=== PATIENT | female | born 1990 | race African-American/Black ===

== ENCOUNTER 2020-07-06 00:23 | Emergency (ER) | payer OTHER, SELFPAY ==
[2020-07-06] VITALS (7 sets, daily range): BP systolic 105–158; BP diastolic 70–89; PULSE 64–92; RESP 16–98; TEMP 37.3; O2SAT 99–100
--- NOTE | ~2020-07-06 | CT_ITS ---
EXAMINATION: CT soft tissue neck w con DATE: 07/06/2020 08:21 INDICATION: Severe throat pain TECHNIQUE: Computed tomography (CT) of the neck was performed with 75 cc of Omnipaque 350 intravenous contrast. The dose-length product (DLP) was 414.19 mGy-cm. Automated exposure control and iterative reconstruction technique were employed. COMPARISON: None FINDINGS: The neck soft tissues are unremarkable. No abnormal fluid collection is identified. There i s no cervical lymphadenopathy. The cervical spine is unremarkable. Multiple dental caries are noted. IMPRESSION: 1. No CT correlate for the patient's symptoms. 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
--- NOTE | ~2020-07-06 | CT_ITS ---
EXAMINATION: CT brain wo con INDICATION: Headache COMPARISON: None TECHNIQUE: Standard unenhanced head CT. The dose-length product (DLP) was 529.67 mGy-cm. The mA was a djusted according to patient size. Iterative reconstruction technique was employed. FINDINGS: There is no intracranial hemorrhage, acute infarction, or abnormal mass lesion. 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 There is no abnormal mass effect or midline shift. The basal cisterns are patent. The orbits a re normal. The paranasal sinuses, mastoids and calvarium are normal. IMPRESSION: 1. No acute intracranial abnormality. 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
[2020-07-06] MEDS: KETOROLAC (*BKC) 60 MG/2 ML VIAL IM (06:00)
[2020-07-06 06:25] LABS: Basophils Percent Auto 0.5 % (0.2-1.2); Eosinophils Absolute Auto 0.1 K/mm3 (0-0.3); Eosinophils Percent Auto 1.4 % (0-4.4); Hemoglobin 10.2 g/dL (12.0-15.0); Lymphocytes Absolute Auto 1.56 K/mm3 (0.9-3.2); Mean Corpuscular HGB Conc 31.9 g/dl (32-36); Mean Corpuscular Hemoglobin 29.2 pg (26-34); Mean Corpuscular Volume 91.7 fl (80-100); Monocytes Absolute Auto 0.4 K/mm3 (0.1-0.6); Monocytes Percent Auto 10.2 % (2.6-8.5); Neutrophils Absolute Auto 2.2 K/mm3 (1.3-6.7); Neutrophils Percent Auto 50.9 % (45.5-73.1); Platelet Count Result 212 k/mm3 (150-375); Red Blood Count 3.49 M/mm3 (4.2-5.4); Red Cell Distribution Width 13.5 % (11.5-14.5); White Blood Count 4.2 K/mm3 (4.5-10.0)
[2020-07-06 06:38] LABS: Alanine Aminotransferase 8 U/L (4-35); Albumin Level 4.3 g/dL (3.5-5.1); Alkaline Phosphatase 64 U/L (38-126); Anion Gap 11 mmol/L (8-16); Aspartate Amino Transferase 18 U/L (14-36); Bilirubin,Total 0.6 mg/dL (0.2-1.3); Blood Urea Nitrogen 7 mg/dL (7-17); Calcium 9.2 mg/dL (8.4-10.2); Carbon Dioxide 24 mmol/L (22-30); Chloride 107 mmol/L (98-107); Estimated Glomerular Filt Rate > 60; Glucose 106 mg/dL (65-105); Potassium 3.5 mmol/L (3.4-5.0); Sodium 142 mmol/L (137-145)
--- NOTE | 2020-07-06 07:15 | PC.NURSE ---
Report received from NIKIA Medina, to continue care.
[2020-07-06] MEDS: Please add drug allergy info to patient profile. 1 EACH XX (07:27)
[2020-07-06] MEDS: methylPREDNISolone SOD SUCC 125 MG VIAL IV PUSH (07:27)
--- NOTE | 2020-07-06 08:32 | ED.NECK ---
HPI - Neck Pain/Injury General Chief Complaint: Neck Pain/Injury Stated Complaint: head and neck pain, no injury Source: patient Mode of arrival: ambulatory Limitations: no limitations History of Present Illness HPI Narrative: This patient is a 30 year old female who presents from home with complaint of throat pain and facial pain. She reports constant right facial pain and throat pain since yesterday. She describes her pain as sharp. She denies any injury. She denies nausea, vomiting, fever, chills, blurred vision, focal weakness, numbness or tingling. She has taken ibuprofen without relief. Related Data Allergies Allergy/AdvReac Type Severity Reaction Status Date / Time No Known Allergies Allergy Verified 07/06/20 07:19 Review of Systems Review of Systems: All systems reviewed & are unremarkable except as noted in HPI and below Constitutional: Constitutional: Denies chills and Denies fever(s) Eyes: Eyes: Denies change in vision and Denies photophobia Cardiovascular: Cardiovascular: Denies chest pain Respiratory: Respiratory: Denies cough and Denies dyspnea Gastrointestinal: Gastrointestinal: Denies abdominal pain, Denies diarrhea and Denies vomiting Neurologic: Denies dizziness, Denies focal weakness, Denies numbness and Denies weakness PMFSH Past Medical History Medical History (Updated 07/07/20 @ 00:00 by Angel Huynh) Patient denies medical problems Surgical History Surgical History (Updated 07/06/20 @ 08:40 by Judith Gutierrez MD) No significant past surgical history Social History Social History (Updated 07/06/20 @ 08:40 by Judith Gutierrez MD) Smoking status: Never smoker Exam Const: General: no acute distress and alert Orientation/consciousness: patient oriented x3 HENMT: Head: normocephalic, atraumatic and other (sensitivity to touch to right cheek and right preauricular) Ears: external ears normal, TM's normal bilaterally and normal mastoids bilaterally General nose exam: Normal external nose present and Normal nares present Face and sinus: face symmetric and other (hypersensitivity to touch right cheek) Mouth: Yes Normal oral and palatal mucosa present, Yes lip normal, Yes tongue normal, Yes oropharynx normal and Yes moist mucous membranes Teeth and gingiva: gingiva normal and fair dentition Throat: posterior oropharynx normal, tonsils normal and uvula midline Eyes: Pupils: Equal, round and reactive pupils present EOM: EOMs intact bilaterally Resp: Effort & Inspection: normal respiratory effort, no retractions and no use of accessory muscles Auscultation: clear to auscultation bilaterally Cardio: Rate: regular rate Rhythm: regular rhythm Heart sounds: no murmurs GI: GI Palp: Yes Soft to palpation, No Tenderness to palpation present (GI), No Guarding due to palpation present (GI) and No Rigid due to palpation Auscultation: normal bowel sounds Skin: General skin exam: normal color Rashes: no rashes Neuro: General: patient oriented x3, moves all extremities and no meningeal signs Cranial nerves: Yes Nystagmus not present Speech: normal speech Extrem: General: normal to inspection Psych: Mental Status: mental status grossly normal Affect: normal affect Course Reevaluation(s) Reevaluation #1: I Discussed with patient that no acute findings found. I do not see any visual abnormality to her face. Maybe this is neuropathic pain or early onset of shingles. Date: 07/06/20 Time: 08:43 Vital Signs Vital signs: Vital Signs Temperature 99.2 F 07/06/20 00:45 Pulse Rate 92 07/06/20 00:45 Respiratory Rate 18 07/06/20 00:45 Blood Pressure 133/73 07/06/20 00:45 Pulse Oximetry 100 07/06/20 00:45 Temperature 99.2 F 07/06/20 00:45 Pulse Rate 72 07/06/20 09:30 Respiratory Rate 18 07/06/20 09:30 Blood Pressure 111/70 07/06/20 09:30 Pulse Oximetry 99 07/06/20 09:30 MDM - Neck Pain/Injury Lab Data Attestation: I revi
== END 2020-07-06 09:37 | disposition home or self-care (01) ==
PROVIDERS: Emergency Provider General Practice
DX: R51.9 Headache, unspecified (principal); Q04.6 Congenital cerebral cysts
CPT/HCPCS: 36415; 70450; 70491; 80053; 81025; 85025; 87081; 87880; 96372; 96374; 99284; J1885; J2930; Q9967

== ENCOUNTER 2020-07-09 12:17 | Emergency (ER) | payer OTHER, SELFPAY ==
[2020-07-09 12:33] VITALS: BP 105/60; PULSE 82; RESP 20; TEMP 36.9; O2SAT 100
--- NOTE | 2020-07-09 12:42 | ED.FEMALEGU ---
HPI - Female Genitourinary General Chief complaint: Urogenital-Female Stated complaint: uti Time Seen by Provider: 07/09/20 12:21 Source: patient Mode of arrival: ambulatory Limitations: no limitations History of Present Illness HPI Narrative: 30-year-old female presents to [facility] with complaints of vaginal irritation and burning with urination since this morning. Patient reports that she was placed on 10 days of amoxicillin 2 days ago after having a dental procedure completed. Patient denies vaginal discharge, concern for STDs, abdominal pains, flank pain, fever, bites, chills, nausea, vomiting or diarrhea MD elicited complaint: other (Vaginal irritation, burning with urination) Onset (ago): day(s) (1) Vaginal discharge: none Vaginal bleeding: none Exacerbating factors: none Relieving factors: none Associated symptoms: denies other symptoms Treatment prior to arrival: none Patient : No Related Data Home Medications Medication Instructions Recorded Confirmed amoxicillin 875 mg TID 07/09/20 07/09/20 Allergies Allergy/AdvReac Type Severity Reaction Status Date / Time No Known Allergies Allergy Verified 07/06/20 07:19 Review of Systems Constitutional: Constitutional: Denies chills and Denies fatigue Cardiovascular: Cardiovascular: Denies chest pain, Denies rapid heart rate, Denies radiating jaw, neck or arm pain and Denies slow heart rate Gastrointestinal: Gastrointestinal: Denies abdominal pain, Denies nausea and Denies vomiting Genitourinary: Comments: Vaginal irritation and burning with urination Musculoskeletal: Musculoskeletal: Denies back pain, Denies joint swelling and Denies muscle cramps Integumentary/Breasts: Skin/Breast: Denies rash PMFSH Past Medical History Medical History (Updated 07/09/20 @ 12:47 by Tamera Harp APRN) delivery delivered Patient denies medical problems Surgical History Surgical History No significant past surgical history Social History Social History Smoking status: Never smoker Comments At time of signature, I agree with nursing past medical, surgical, social and family history. There is no relevant family history pertinent to the presenting complaint. Exam Const: General: healthy appearing, no acute distress and alert Orientation/consciousness: patient oriented x3 Neck: Neck: normal visual inspection and no lymphadenopathy Resp: Effort & Inspection: normal respiratory effort Auscultation: clear to auscultation bilaterally Cardio: Rate: regular rate Rhythm: regular rhythm GI: GI Palp: Yes Soft to palpation, No Tenderness to palpation present (GI), No Guarding due to palpation present (GI), No Rigid due to palpation and No Palpable mass present Auscultation: normal bowel sounds : General: Yes bladder normal to palpation and Yes no CVA tenderness Back/Spine/Pelvis: Back: no CVA tenderness Skin: General skin exam: normal color Rashes: no rashes Neuro: General: patient oriented x3, moves all extremities and no meningeal signs Extrem: General: normal to inspection Psych: Appearance: grossly normal Mental Status: mental status grossly normal Affect: normal affect Attitude: cooperative Thought content: Yes Normal thought content present Course Vital Signs Vital signs: Vital Signs Temperature 36.9 C 07/09/20 12:33 Pulse Rate 82 07/09/20 12:33 Respiratory Rate 20 07/09/20 12:33 Blood Pressure 105/60 07/09/20 12:33 Pulse Oximetry 100 07/09/20 12:33 Temperature 36.9 C 07/09/20 12:33 Pulse Rate 82 07/09/20 12:33 Respiratory Rate 20 07/09/20 12:33 Blood Pressure 105/60 07/09/20 12:33 Pulse Oximetry 100 07/09/20 12:33 MDM - Female Genitourinary MDM Narrative Medical decision making narrative: Patient agrees to take medications as prescribed. Patient agrees to stop amoxicill
== END 2020-07-09 12:50 | disposition home or self-care (01) ==
PROVIDERS: Emergency Provider Nurse Practitioner Family
DX: B37.3 Candidiasis of vulva and vagina (principal); N39.0 Urinary tract infection, site not specified
CPT/HCPCS: 81003; 87077; 87086; 87088; 87186; 99213; G0463